=== PATIENT | male | born 1955 | race Caucasian/White ===

== ENCOUNTER 2017-01-31 05:10 | Day surgery (SDC) | payer BC ==
[2017-01-19 08:21] VITALS: BMI 26.0
--- NOTE | 2017-01-19 08:50 | PAT Medication Instructions ---
Service Date January 19, 2017. Current Home Medication List Acetaminophen Tab (Tylenol), 650 MG PO PRN Naproxen (Aleve), 220 MG PO PRN Pseudoephedrine (Sudafed), 30 MG PO PRN Medication Instructions For Your Scheduled Surgery - Check with surgeon for instructions: Naproxen (Aleve), 220 MG PO PRN - Hold the following medications the morning of surgery: Pseudoephedrine (Sudafed), 30 MG PO PRN - Take the following medications the morning of surgery with a sip of water: Acetaminophen Tab (Tylenol), 650 MG PO PRN (if needed) - Take the following medications as scheduled the night before surgery: Pseudoephedrine (Sudafed), 30 MG PO PRN (if needed) Acetaminophen Tab (Tylenol), 650 MG PO PRN (if needed) If you have any questions please call us at [phone] or [phone] or [phone]
[~2017-01-31] VITALS: Ht 185.4 cm; Wt 91.9 kg
[~2017-01-31 05:10] MED LIST: ACET325T96 PO; NAPR1TAB9 PO; PSEU30TA20 PO
[2017-01-31 05:34] VITALS: BP 123/79; PULSE 84; TEMP 36.9; O2SAT 96; Ht 185.4 cm; Wt 91.9 kg
[2017-01-31] MEDS ORDERED: LACTATED RINGER'S 1000ML 1,000 ML IV SCH (06:00)
[2017-01-31] MEDS ORDERED: CEFAZOLIN 2000 MG/60 ML D5W IV SCH (06:00)
--- NOTE | 2017-01-31 06:50 | History & Physical Bridge Note ---
H&P Re-Evaluation Bridge Note: I have examined the patient, reviewed the History & Physical and in the interval since the performance of the History & Physical I have noted the following changes of clinical significance: No changes noted
[2017-01-31] MEDS ORDERED: FENTANYL CITRATE INJ 50 MCG/1 ML 2 ML VIAL ONE ×2 (06:53→06:54)
[2017-01-31] MEDS ORDERED: MIDAZOLAM HCL 1 MG/ML 2ML VIAL ONE (06:53)
[2017-01-31] MEDS ORDERED: LIDOCAINE HCL 1% 20 ML VIAL ONE (06:55)
[2017-01-31] MEDS ORDERED: BUPIVACAINE 0.5 % 5 MG/1 ML MPF 30ML VIAL ONE (06:55)
[2017-01-31] MEDS ORDERED: ATROPINE SULFATE 0.1 MG/ML 5ML SYR IV PRN (07:00)
[2017-01-31] MEDS ORDERED: ONDANSETRON INJ 2 MG/ML 2 ML VIAL IV PRN ×2 (07:00→10:45)
[2017-01-31] MEDS ORDERED: EpHEDrine SULFATE INJ 50 MG/ML AMP IV PRN (07:00)
[2017-01-31] MEDS ORDERED: FENTANYL CITRATE INJ 50 MCG/1 ML 2 ML VIAL IV PRN (07:00)
[2017-01-31] MEDS ORDERED: LIDOCAINE HCL 2% 2 ML VIAL (20MG/ML) ONE (07:20)
[2017-01-31] MEDS ORDERED: ONDANSETRON INJ 2 MG/ML 2 ML VIAL ONE (07:20)
[2017-01-31] MEDS ORDERED: DEXAMETHASONE SOD INJ 4 MG/ML VIAL ONE (07:20)
[2017-01-31] MEDS ORDERED: PROPOFOL IV EMULSION 10 MG/ML 20 ML VIAL IV ONE (07:20)
[2017-01-31] MEDS ORDERED: LARYING-O-JET KIT (LTA) ONE ×2 (07:20)
[2017-01-31] MEDS ORDERED: ROCURONIUM BROMIDE 10 MG/ML 5 ML VIAL ONE (07:20)
[2017-01-31] MEDS ORDERED: CEFAZOLIN IV 2,000 MG/60 ML D5W IV ONE (07:30)
[2017-01-31] MEDS ORDERED: GLYCOPYRROLATE INJ 0.2 MG/ML VIAL ONE (10:22)
[2017-01-31] MEDS ORDERED: NEOSTIGMINE METHYLSULFATE 5 MG/5 ML SYR ONE (10:22)
[2017-01-31] MEDS ORDERED: BACITRACIN OINT 15 GM TUBE ONE (10:26)
--- NOTE | 2017-01-31 10:27 | [facility] Post Operative Brief Note ---
Immediate Operative Summary Operative Date Jan 31, 2017. Pre-Operative Diagnosis Bilateral Inguinal Hernias Post-Operative Diagnosis Bilateral Inguinal Hernias Procedure(s) Performed Bilateral Laparoscopic Inguinal Hernia Repair with Mesh Surgeon Dr. Marcia Parker Supervisor Cytology Surgeon(s) Ania Israel PA-C Estimated Blood Loss 10ml Findings bilateral indiect inguinal hernia Fluids (cc crystalloids) 1500ml Specimens No Specimen Drains none Anesthesia general Complication(s) None Disposition Recovery Room / PACU
[2017-01-31] MEDS ORDERED: OXYC-57 PO (10:39)
--- NOTE | 2017-01-31 10:43 | Discharge Instructions ---
Discharge Instructions Date of Service Jan 31, 2017. Admission Reason for Admission: Bilateral Inguinal Hernia Discharge Discharge Diagnosis / Problem: bilateral inguinal hernia repair Discharge Goals Goal(s): Decrease discomfort Activity Recommendations Activity Limitations: as noted below No heavy lifting over 20 pounds for 4-6 weeks or until cleared by surgeon No strenuous activity, walking is encouraged No submerging incisions underwater for 2 weeks [address] while taking narcotic pain medication . Instructions / Follow-Up Instructions / Follow-Up You may shower in 3 days, sponge bath and wash hair in meantime. You may then remove dressings. Keep steri strips on for 7 days, if they fall off before that is okay. You do not need to recover your incisions unless they are draining. Follow-up with Dr. Parker in 1 week , please call office at [phone] to make an appointment if you do not already have one Current Hospital Diet Patient's current hospital diet: Discharge Diet Recommended Diet: Regular Diet Procedures Procedures Performed: Bilateral Laparoscopic Inguinal Hernia Repair with Mesh Pending Studies Studies pending at discharge: no Medical Emergencies . Who to Call and When: Medical Emergencies: If at any time you feel your situation is an emergency, please call 911 immediately. . Non-Emergent Contact Non-Emergency issues call your: Primary Care Provider, Surgeon Call Non-Emergent contact if: you have a fever, temperature is above 101.5, your pain is not controlled, your pain is worsening, wound has increased drainage, wound has increased redness, wound has increased pain . "Provider Documentation" section prepared by Ania Santana. . VTE Core Measure Inpt VTE Proph given/why not?: SCD's [place] Drug Monitoring Program Search Results: patient reviewed within database, no issues identified
[2017-01-31] MEDS ORDERED: OXYCODONE/ACETAMINOPHEN 5-325 TAB PO PRN (10:45)
[2017-01-31] MEDS ORDERED: MoRPHine SULFATE 2 MG/ML CARP IV PRN ×2 (10:45)
[2017-01-31] MEDS ORDERED: MoRPHine SULFATE 4 MG/ML 1 ML CARP\\VIAL IV PRN (10:45)
--- NOTE | 2017-01-31 11:09 | OPERATIVE REPORT ---
DATE OF OPERATION: 01/31/2017 PREOPERATIVE DIAGNOSIS: Bilateral inguinal hernia. POSTOPERATIVE DIAGNOSIS: Bilateral inguinal indirect hernia. OPERATION: Laparoscopic bilateral inguinal hernia repair with mesh. SURGEON: Marcia Parker M.D. PARCEL POST WEIGHER: Ania Santana PA-C. ANESTHESIA: General. ESTIMATED BLOOD LOSS: About 10 mL. IV FLUIDS: 1500 mL. FINDINGS: Bilateral indirect inguinal hernia. COMPLICATIONS: None. INDICATIONS FOR THE PROCEDURE: This is a 61-year-old gentleman who presented with bilateral inguinal hernia. The patient will be required to do laparoscopic bilateral inguinal hernia repair with mesh, possible open. I did talk to the patient about the benefit and risk, alternate procedure. I indicated the risks may include but not limited such as bleeding, infection, hernia recurrence, chronic incision pain. The patient understands. He signed informed consent and I answered all questions. He agreed to proceed with the procedure. OPERATION AND FINDINGS: DETAILS OF PROCEDURE: We brought the patient to the OR, put the patient in the supine position. The patient received SCD on bilateral legs to prevent DVT. Also, the patient received general anesthesia without difficulty. The patient received 2 grams Ancef IV for prophylactic antibiotic. The patient received Sanon catheter insertion. The abdomen was prepped and draped in routine sterile fashion. After time out an injection of local anesthesia by using 1% lidocaine mixed with 0.5% Marcaine just below the umbilical. Then I made a small incision just below the umbilical, opened fascia and opened peritoneum under direct vision. I put a Dolores trocar in, connected to CO2 until flow rate is 6 liter per minute and pressure not more than 14 mmHg. Once we got a nice pneumoperitoneum, we put another two 5 mm trocar just below the umbilical incision about 6 cm each part. Once all trocars in we put the 10 mm camera in to look around the abdomen showing the patient has bilateral inguinal indirect hernia. We decided to fix the right side first. Then I used a grasper to pull down the peritoneum and made an opening on the peritoneum and reduced the hernia sac into the abdominal cavity. Then I used the Endoloop to close the hernia sac from inside the abdomen and then I chose medium Prolene mesh to fix the hernia and then used the staple to attach the mesh to David ligament and then closed the perineal incision by using staple and rechecked, no active bleeding. Then we moved onto the left-sided inguinal hernia and patient also had an indirect inguinal hernia on the left side. Again, we made incision on the peritoneum and reduced the hernia sac into the abdominal cavity. Then we reversed the hernia sac. Then we used the Endoloop to close the hernia sac and then to mobilize the space to create a space on the extraperitoneal and then I chose medium sized Prolene mesh to blockage hernia hole and used a staple to attach mesh to David ligament. Then we closed the perineal incision by using stable too and hemostasis obtained. Then we removed all trocars under direct vision, no active bleeding. Then we closed the umbilical incision, fascial layer by using #1 Vicryl [id number] x2, closed subcutaneous layer by using 2-0 Vicryl, closed the 5 mm trocar site on the skin only by using 4-0 Vicryl. We put the dressing on. The patient tolerated the procedure well. The patient transferred to recovery room in stable condition. All the instrument, needle and sponge count correct x2 at the end of case. Before and after procedure, I gave patient the postop care instructions. The patient understands. I attest to the content of the Intraoperative Record and any orders documented therein. Any exceptions are noted below. YAWD
[2017-01-31 11:25] VITALS: BP 118/74; PULSE 77; TEMP 36.7; O2SAT 96
[2017-01-31 11:55] VITALS: BP 118/69; PULSE 88; O2SAT 97
--- NOTE | 2017-01-31 12:02 | Anesthesiology Progress Note ---
Anesthesia Post Op Note Date & Time Jan 31, 2017 at 12:01 Vital Signs Pain Intensity: 0 Vital Signs Past 12 Hours Date Time Temp Pulse Resp B/P (MAP) Pulse Ox O2 Delivery O2 Flow Rate FiO2 01/31/17 11:25 36.7 77 18 118/74 96 Room Air 01/31/17 11:16 36.5 79 20 110/80 97 Room Air 01/31/17 11:15 76 16 01/31/17 11:15 76 16 95 01/31/17 11:12 110/80 01/31/17 11:10 75 21 94 01/31/17 11:10 75 21 01/31/17 11:07 115/77 01/31/17 11:05 76 17 95 01/31/17 11:05 74 17 01/31/17 11:02 113/79 01/31/17 11:00 71 12 01/31/17 11:00 70 12 96 01/31/17 10:57 115/72 01/31/17 10:55 63 14 98 01/31/17 10:55 64 14 01/31/17 10:52 117/75 01/31/17 10:50 65 13 99 01/31/17 10:50 65 13 01/31/17 10:47 121/78 01/31/17 10:45 63 8 100 01/31/17 10:45 63 8 01/31/17 10:42 123/81 01/31/17 10:40 62 10 01/31/17 10:40 63 10 100 01/31/17 10:37 135/91 01/31/17 10:34 36.5 65 16 135/91 100 Mask 10 01/31/17 05:34 36.9 84 18 123/79 (94) 96 Room Air Notes Mental Status: alert / awake / arousable, participated in evaluation Pt Amnestic to Procedure: Yes Nausea / Vomiting: adequately controlled Pain: adequately controlled Airway Patency, RR, SpO2: stable & adequate BP & HR: stable & adequate Hydration State: stable & adequate Anesthetic Complications: no major complications apparent
[2017-01-31 12:25] VITALS: BP 109/70; PULSE 88; TEMP 37.3; O2SAT 96
== END 2017-01-31 12:37 | disposition home or self-care (01) ==
LOC: C.ACU 05:10
PROVIDERS: ATTEND Surgery
DX: K40.20 Bilateral inguinal hernia, without obstruction or gangrene, not specified as recurrent (principal); Z68.26 Body mass index [BMI] 26.0-26.9, adult; Z98.52 Vasectomy status